=== PATIENT | male | born 1960 | race Hispanic/Latino ===

== ENCOUNTER → 2018-06-19 | Day surgery (SDC) | payer OTHER ==
[~2018-06-19] MED LIST: ACETAMINOPHEN 1000 MG/100 ML IV ONE; BUPIVACAINE 0.25% 30ML SDV INJ ONE; CEFAZOLIN SOD 2 GM/D5W 50ML 50 ML IV ONE; DEXAMETHASONE SOD PHOS INJ 4 MG/ML VIAL ONE; FENTANYL CITRATE/PF 100MCG/2 ML INJ ONE; GLYCOPYRROLATE INJ 1MG/ 5 ML SYR ONE; LIDOCAINE HCL 2% LOCAL INJ 5 ML SDV VIAL INJ ONE; MIDAZOLAM HCL 2 MG/2 ML VIAL ONE; MUPIROCIN 2% OINT 22 GM TUBE ONE; NEOSTIGMINE 5 MG/5ML SYR ONE; NORCO 7.5-3251 EACH PO; ONDANSETRON HCL INJ 2MG/ML 2ML 2 MG/ML VIAL ONE; PROPOFOL IV EMULSION 10 MG/ML 20 ML VIAL ONE; ROCURONIUM BROMIDE 10 MG/ML 5ML VIAL ONE; SEVOFLURANE INHAL SOLN 250 ML PEN BTL ONE; SUCCINYLCHOLINE 200 MG/10 ML SYR ONE
--- OUTSIDE RECORDS SUMMARY | 2018-06-19 05:13 | XMS REPORT | Continuity of Care Document ---
Author Author [facility] Interface Address Unknown Phone Unavailable Problems Problem Status Onset Date Classification Date Reported Comments Source Stomach ache 10/09/2017 Diagnosis 10/09/2017 [facility] Viral gastroenteritis 10/09/2017 Diagnosis 10/09/2017 [facility] Elevated blood-pressure reading without diagnosis of hypertension 10/09/2017 Diagnosis 10/09/2017 [facility] Pain in throat 10/09/2017 Diagnosis 10/09/2017 [facility] Influenza-like symptoms 10/09/2017 Diagnosis 10/09/2017 [facility] Body mass index 40+ - severely obese 10/09/2017 Diagnosis 10/09/2017 [facility] Viral Gastroenteritis 10/09/2017 Problem 10/09/2017 [facility] Pain in Throat 10/09/2017 Problem 10/09/2017 [facility] Benign Prostatic Hyperplasia 10/09/2017 Problem 10/09/2017 [facility] Influenza-like Symptoms 10/09/2017 Problem 10/09/2017 [facility] Stomach Ache 10/09/2017 Problem 10/09/2017 [facility] Elevated Blood-pressure Reading without Diagnosis of Hypertension 10/09/2017 Problem 10/09/2017 [facility] Body Mass Index 40+ - Severely Obese 10/09/2017 Problem 10/09/2017 [facility] Medications Medication Details Route Status Patient Instructions Ordering Provider Order Date Source benzonatate 200 MG Oral Capsule benzonatate 200 mg capsule Take 1 capsule 3 times a day by oral route as needed. Active [facility] 0.5 ML influenza A virus A/[place]/ (H1N1) antigen 0.03 MG/ML / influenza A virus A/ (H3N2) antigen 0.03 MG/ML / influenza B virus B/[place] antigen 0.03 MG/ML / influenza B virus B/ antigen 0.03 MG/ML Prefilled Syringe [Flucelvax Quadrivalent ] Flucelvax Quad 0665-1989 (PF) 60 mcg (15 mcg x 4)/0.5 mL IM syringe IMMUNIZATION GIVEN Active [facility] Fluticasone propionate 0.05 MG/ACTUAT Metered Dose Nasal [place] fluticasone 50 mcg/actuation nasal spray,suspension [place] 2 sprays every day by intranasal route as directed. Active [facility] gabapentin 300 MG Oral Capsule gabapentin 300 mg capsule TAKE ONE (1) CAPSULE(S) BY MOUTH THREE TIMES A DAY. Active [facility] Ondansetron 8 MG Oral Tablet ondansetron HCl 8 mg tablet Take 1 tablet every 8 hours by oral route as needed for 5 days. Active [facility] Tamsulosin hydrochloride 0.4 MG Oral Capsule tamsulosin 0.4 mg capsule TAKE ONE (1) CAPSULE(S) BY MOUTH DAILY DIRECTED. Active [facility] Allergies, Adverse Reactions, Alerts Substance Category Reaction Severity Reaction type Status Date Reported Comments Source Iodine Rash Allergy to substance 04/20/2014 [facility] Immunizations Immunization Date Given Site Status Last Updated Comments Source influenza, unspecified formulation 01/28/2017 completed [facility] Results Order Name Results Value Reference Range Date Interpretation Comments Source RESULT negative 10/09/2017 [facility] SWAB LOCATION Left and Right tonsillar pillars 10/09/2017 [facility] Influenza A negative 10/09/2017 [facility] Influenza B negative 10/09/2017 [facility] Vital Signs Vital Sign Value Date Comments Source Diastolic (mm Hg) 80 10/09/2017 [facility] Height 71 10/09/2017 [facility] Systolic (mm Hg) 120 10/09/2017 [facility] Weight 338 10/09/2017 [facility] Encounters Location Location Details Encounter Type Encounter Number Reason For Visit Attending Provider ADM Date DC Date Status Source [place] - [facility] - [id number] Olvera-C: [address] [place] [address], Ph. [id number] Bijal Arguello 10/09/2017 [facility] Procedures Procedure Code Date Perfomer Comments Source Cholecystectomy [facility] Tonsillectomy [facility]
--- OUTSIDE RECORDS SUMMARY | 2018-06-19 05:13 | XMS REPORT | Encounter Summary ---
Author Organization Unknown Address [address] [place] [address] Phone [phone] Care Team Providers Care Oil Field Worker Name Role Phone Valentino Mendoza 3 [phone] Reason for Visit Medical Complaint Instructions 1. Influenza-like symptoms rapid flu (A+B) benzonatate 200 mg capsule fluticasone 50 mcg/actuation nasal spray,suspension 2. Pain in throat sore throat: care instructions rapid strep group A, throat 3. Viral gastroenteritis ondansetron HCl 8 mg tablet 4. Stomach ache abdominal pain: care instructions 5. Elevated blood-pressure reading without diagnosis of hypertension elevated blood pressure: care instructions 6. Body mass index 40+ - severely obese body mass index information Discussion Note Pt is in NAD; Verbalizes understanding of all instructions with no questions at this time. Plan of Care Patient Instructions Stop dayquil and nyquil. Take tylenol over the counter for stomach pain/headache/fever as per pacakge insert. Take benzonatate for cough as directed. Take fluticasone as needed for congestion. [place] one spray in each nostril twice a day. Take a warm, steamy shower, blow your nose thereafter, and spray in each nostril. Tilt your head up for about 10 seconds and breath through your mouth. Do not sniff or snort the medication in or else the medication will go to your throat and not be absorbed appropriately. Stay hydrated with pedialyte or gatorade, eat a liquid diet for the first four hours. Stay away from fried and spicy foods until symptoms resolve. If you do experience improvement in your symptoms within the next four hours, advance yourself to a carbohydrate-rich diet such as white rice, white bread, and crackers. Within the next four hours thereafter, you can advance to lean meats such as chicken, fish, and turkey. Four hours thereafter if symptoms do improve, then advance to a regular diet. Take ondansetron as directed for nausea. Take medications as prescribed and follow up with a PCP within 2-3 if symptoms worsen as discussed. Recommend monitor BP at home and document, bring BP log to PCP for review. Recommend follow a low sodium diet and exercise 30-45 mins/d 3-4 days a week once symptoms resolve. In case of an emergency call 911 or go to nearest ER. Reminders Provider Appointments None recorded. Lab Rapid Flu (A+B) 10/09/2017 [facility] Rapid Strep Group a, Throat 10/09/2017 [facility] Referral None recorded. Procedures None recorded. Surgeries None recorded. Imaging None recorded. Medications Name Start Date benzonatate 200 mg capsule Take 1 capsule 3 times a day by oral route as needed. Flucelvax Quad 5058-4999 (PF) 60 mcg (15 mcg x 4)/0.5 mL IM syringe IMMUNIZATION GIVEN fluticasone 50 mcg/actuation nasal spray,suspension [place] 2 sprays every day by intranasal route as directed. gabapentin 300 mg capsule TAKE ONE (1) CAPSULE(S) BY MOUTH THREE TIMES A DAY. ondansetron HCl 8 mg tablet Take 1 tablet every 8 hours by oral route as needed for 5 days. tamsulosin 0.4 mg capsule TAKE ONE (1) CAPSULE(S) BY MOUTH DAILY DIRECTED. Medications Administered None recorded. Vitals Height Weight BMI Blood Pressure 5 ft 11 in 338 lbs 47.1 kg/m2 (1) 130/90 mm[Hg] (2) 120/80 mm[Hg] Lab Results Date Name Specimen Result Interpretation Description Value Range Status Address Rapid Strep Group a, Throat Result negative [facility]: [address] [place] [address] Swab Location Left and Right tonsillar pillars [facility]: [address] [place] [address] Rapid Flu (A+B) Influenza a negative [facility]: [address] [place] [address] Influenza B negative [facility]: [address] [place] [address] Allergies Code Code System Name Reaction Severity Status Onset 5933 RxNorm Iodine Rash Active Problems Name Status Onset Date Source Viral Gastroenteritis Active 10/09/2017 Pain in Throat Active 10/09/2017 Benign Prostatic Hyperplasia Active 10/09/2017 Influenza-like Symptoms Active 10/09/2017 Stomach Ache Active 10/09/2017 Elevated Blood-pressure Reading without Diagnosis of Hypertension Active 10/09/2017 Body Mass Index 40+ - Severely Obese Active 10/09/2017 Procedures Date Name Performed by Cholecystectomy Information not available Tonsillectomy Information not available Vaccine List Vaccine Type influenza, unspecified formulation 01/28/2017 Social History Smoking Status Never Smoker Past Encounters 10/09/2017 Influenza-like Symptoms; Pain in Throat; Viral Gastroenteritis; Stomach Ache; Elevated Blood-pressure Reading without Diagnosis of Hypertension; Body Mass Index 40+ - Severely Obese Bijal Arguello, PLANNING AIDE-C: [address] [place] [address], Ph. History of Present Illness Obdavvj-[id number]-Rbr Reported By: Patient HPI: Quality: symptoms worse during the day. Duration: 2-3 days. Severity: subjective temperature. Context: no ill contacts, no tick/insect bites, no recent travel, no new medications. Associated Symptoms: no headache, no muscle aches, no rash, no lethargy, fever/chills, cold symptoms, cough, nasal passage blockage (stuffiness), nasal discharge; sore throat, chest congestion, body aches, nausea, and abdominal pain (resolved). Modifying Factors nothing gives relief Note:
Review of Systems Basic Reported By: Patient Constitutional: Constitutional: fever; body aches and chills Eyes: Eyes: no eye complaints Ueap-Mofd-Rlgue-Throat: Ears: no ear complaints. Nose: nose/sinus problems. Mouth/Throat: no bleeding gums, no mouth complaints, no teeth problems, sore throat Cardiovascular: Cardiovascular: no chest pain, no shortness of breath, no known heart murmur Respiratory: Respiratory: no wheezing, no shortness of breath, cough; chest congestion Gastrointestinal: Gastrointestinal: no vomiting / diarrhea, abdominal pain; nausea Genitourinary: Genitourinary: no urinary complaints, no discharge Musculoskeletal: Musculoskeletal: no muscle aches, no muscle weakness, no arthralgias/joint pain, no back pain Skin: Skin: no abnormal / changing mole, no jaundice, no rashes Neurologic: Neurologic: no loss of consciousness, no weakness, no numbness, no seizures, no dizziness, no headaches Physical Exam Adult Basic, Adult Male Complete Reported By: Patient Constitutional: General Appearance: obese. Level of Distress: NAD. Ambulation: ambulating normally Psychiatric: Mental Status: active and alert. Orientation: to time, to place, to person Eyes: Lids and Conjunctivae: non-injected, no pallor Mjc-Fmec-Abzdo-Throat: Ears: no lesions on external ear, no outer ear tenderness, EACs clear, TMs clear. Hearing: no hearing loss. Nose: no lesions on external nose, nares patent, no septal deviation, nasal passages clear, no sinus tenderness, nasal discharge--rhinorrhea, post nasal drip. Lips, Teeth, and Gums: no mouth or lip ulcers, no bleeding gums, normal dentition. Oropharynx: moist mucous membranes, no erythema, no exudates, tonsils absent Neck: Neck: supple. Lymph Nodes: no cervical LAD Lungs: Respiratory effort: no dyspnea, no tachypnea, no use of accessory muscles, no intercostal retractions. Auscultation: breath sounds normal Cardiovascular: Heart Auscultation: RRR, no murmurs Neurologic: Gait and Station: normal gait, normal station Abdomen: Bowel Sounds: normal. Inspection and Palpation: soft, no tenderness, no guarding, no rebound tenderness, no masses, no CVA tenderness. Hernia: none palpable
[2018-06-19 10:30] VITALS: BP 118/84
--- NOTE | 2018-06-19 15:17 | Operative Report ---
DATE OF PROCEDURE: 06/19/2018 PREOPERATIVE DIAGNOSES: 1. Peroneal tendon tear, left. 2. Dislocated peroneus, left. POSTOPERATIVE DIAGNOSES: 1. Peroneal tendon tear, left. 2. Dislocated peroneus, left. PROCEDURES: 1. Peroneal repair with transposition to the cuboid, left. 2. Fibular groove deepening, left. 3. The application of posterior splint. 4. The use of allograft to repair the tendon. COMPLICATIONS: None. CONDITION: Stable. ANESTHESIA: General anesthetic. HEMOSTASIS: Pneumatic thigh tourniquet. ESTIMATED BLOOD LOSS: Less than 20 mL. MATERIALS: A 4 x 4 graft from BULX with 2-0 suture for transposition of the tendon. PROCEDURE IN DETAIL: sedation, the patient was brought to the operating room and placed on the operating table in supine position. Following IV sedation, anesthesia was obtained with a general anesthetic. At this point, the left foot was scrubbed, prepped and draped in the usual aseptic manner. The foot was positioned into a lateral position. The pneumatic thigh tourniquet was inflated and the leg was lowered to the table. Attention was then directed to the lateral aspect of the left foot, where a curvilinear incision was made overlying the peroneal tendon. The incision was made from the base of the foot down past the watershed area and the fibula, but 4 cm from insertion. The incision was deepened via sharp and blunt dissection down to the level of the peroneal tendon. The extensor retinaculum was then transected, the tendon was then exposed. It was noted the peroneus longus was flat and the sheath was full of mucoid, all this was removed down to clean viable tendon. The peroneus brevis, half of the tendon was torn and there was some detachment from the insertion. All nonviable tissue was removed with a 15 blade down to clean viable tissue. The tendon was then tubulated and then graft was used to augment the tendon. At this point, the detached peroneus brevis was transposed into the cuboid. There was noted to be adequate correction clinically. A SonicAnchor was used under the use of intraoperative fluoroscopy to confirm adequate placement into the cuboid. The area was then flushed with copious amounts of normal sterile saline solution. Attention was then directed to the fibular groove, where utilizing a combination of a hand rasp and a rotary kortney, the fibular groove was deepened in order to prevent the tendons from dislocating on ambulation. The shallow groove was then deepened. The area was then flushed with copious amounts of normal sterile saline solution. At this point, all layers were closed, closing the deepest layer with 3-0 Vicryl and 4-0 Vicryl and 4-0 nylon. Tourniquet had been deflated prior to closing. There was noted to be adequate blood flow to all extremities. An injection of 20 mL of 0.5% of Marcaine plain was given. All areas were then dressed with sterile compressive dressing consisting of Adaptic, Coban, 4 x 4s, Kerlix. Webril posterior splint was applied and it was secured utilizing an Brent bandage. The tourniquet had been deflated prior to closure and there was noted to be hyperemic response to all the digits. The patient tolerated the procedure and anesthesia well without complications, was transferred to recovery room with vital signs stable and vascular status intact to both feet. The patient will be discharged home when he meets the criteria. He was given instructions to be strict nonweightbearing, to elevate the foot while at rest, follow up with me in the office and to call the office if any questions, concerns, or new problems arise. KOREY Danielle/ROSANNE /[id number]
== END | disposition home or self-care (01) ==
LOC: OR 05:10
PROVIDERS: ATTEND Podiatrist Foot & Ankle Surgery
DX: S86.312A Strain of muscle(s) and tendon(s) of peroneal muscle group at lower leg level, left leg, initial encounter (principal); E66.9 Obesity, unspecified; I45.10 Unspecified right bundle-branch block; Z91.041 Radiographic dye allergy status; X58.XXXA Exposure to other specified factors, initial encounter; Z01.810 Encounter for preprocedural cardiovascular examination; Z90.5 Acquired absence of kidney; Z85.528 Personal history of other malignant neoplasm of kidney
CPT/HCPCS: 27676; 76000; 93005; J0131; J0690; J1100; J2001; J2250; J2405; J2704; J3490; Q4100

== ENCOUNTER → 2018-09-26 | Day surgery (SDC) | payer OTHER ==
[2018-09-21 11:51] LABS: BASOPHILS # (AUTO) 0.1 (0.0-0.1); BASOPHILS % 0.8 % (0.0-1.0); EOSINOPHILS # (AUTO) 0.2 (0.0-0.4); EOSINOPHILS % 2.6 % (0.0-6.0); HEMATOCRIT 48.3 % (38.2-49.6); HEMOGLOBIN 16.8 g/dL (14.0-18.0); LYMPHOCYTES # (AUTO) 1.2 (1.0-3.2); LYMPHOCYTES % 19.6 % (18.0-39.1); MEAN CORPUSCULAR HEMOGLOBIN 30.8 pg (28-32); MEAN CORPUSCULAR HGB CONC 34.8 g/dL (31-35); MEAN CORPUSCULAR VOLUME 88.6 fL (81-99); MONOCYTES # (AUTO) 0.6 (0.2-0.8); MONOCYTES % 10.2 % (4.4-11.3); NEUTROPHILS # (AUTO) 4.1 (2.1-6.9); NEUTROPHILS % 66.3 % (38.7-80.0); PLATELET COUNT 215 x10e3/uL (140-360); RED BLOOD COUNT 5.45 x10e6/uL (4.3-5.7); RED CELL DISTRIBUTION WIDTH 13.1 % (11.7-14.4)
[2018-09-21 12:03] LABS: ANION GAP 10.9 mmol/L (8-16); BLOOD UREA NITROGEN 20 mg/dL (7-26); BUN/CREATININE RATIO 17 (6-25); CALCIUM 9.3 mg/dL (8.4-10.2); CARBON DIOXIDE 23 mmol/L (22-29); CHLORIDE 108 mmol/L (98-107); CREATININE, SERUM 1.18 mg/dL (0.72-1.25); EST GLOMERULAR FILTRATION RATE > 60 ML/MIN (60-); GLUCOSE 96 mg/dL (74-118); POTASSIUM 3.9 mmol/L (3.5-5.1); SODIUM 138 mmol/L (136-145)
[~2018-09-26] MED LIST changes: +BACITRACIN 50,000 UNIT VIAL ONE; -BUPIVACAINE 0.25% 30ML SDV INJ ONE; +BUPIVACAINE 0.5%/EPI 30 ML SDV INJ ONE; +BUPIVACAINE HCL 0.5% INJ 30 ML VIAL INJ ONE; +CEFAZOLIN SOD 1 GM/NS 50ML 50 ML IV ONE; -GLYCOPYRROLATE INJ 1MG/ 5 ML SYR ONE; -MUPIROCIN 2% OINT 22 GM TUBE ONE; -NEOSTIGMINE 5 MG/5ML SYR ONE
--- OUTSIDE RECORDS SUMMARY | 2018-09-26 05:56 | XMS REPORT ---
Author Author [facility] Address Unknown Phone Unavailable Care Team Providers Care Inventory Control Supervisor Name Role Phone Unavailable Unavailable Payers Payer Name Policy Type Policy Number Effective Date Expiration Date Problems This patient has no known problems. Allergies, Adverse Reactions, Alerts Allergy Name Allergy Type Status Severity Reaction(s) Onset Date Inactive Date Treating Clinician Comments iodine DA Active [facility] 2016-04-15 00:00:00 Medications This patient has no known medications.
[2018-09-26 10:30] VITALS: BP 112/74
--- NOTE | 2018-09-26 17:05 | Operative Report ---
DATE OF PROCEDURE: 09/26/2018 SURGEON: Carter Mccormack MD PREOPERATIVE DIAGNOSIS: Recurrent incisional hernia. POSTOPERATIVE DIAGNOSIS: Recurrent incisional hernia. PROCEDURE: Repair of recurrent incisional hernia with mesh. TUBE COVERER: None. ANESTHESIA: General endotracheal. INDICATIONS AND FINDINGS: The patient is a 57-year-old male with complaints of bulge left side of the abdomen adjacent to the umbilicus. He has had previous hernia repair several times. At surgery, there was a hernia at the edge of previous repair where the mesh was, containing some small bowel. The fascial defect was approximately 3 x 4 cm. TECHNIQUE: After adequate general endotracheal anesthesia with the patient in supine position, the abdomen was prepped and draped in sterile fashion with ChloraPrep solution. Transverse incision was made over the area of the hernia, carried down through subcutaneous tissue. The hernia mass was dissected free from the surrounding tissues down to the fascia. Freed from the fascia hernia defect also freed from the umbilicus. The hernia sac was opened. The redundant sac was excised. The small bowel within the hernia was reduced in the peritoneal cavity with the fascial defect completely delineated. A separate mesh was soaked in antibiotic solution and fashioned to appropriate size. It was sutured to the undersurface of the fascia in the intraperitoneal position with a running horizontal mattress suture of #0 prolene sutures taken approximately 2.5 cm from the edge of the defect. Once the mesh was in place within the edge of the fascia closed transversely over the mesh with a running suture of #0 Prolene. When the mesh was being sutured in place, care was taken that the small bowel was not entrapped. The wound was infiltrated with 0.5% Marcaine. It was irrigated with antibiotic solution, inspected for hemostasis, which was seem to be adequate. A 19-Welsh Shalom drain was placed into the subcutaneous tissue through a separate stab wound incision. The subcutaneous tissue was closed using running suture of 3-0 Vicryl and skin was closed with haleigh. Sterile dressing was applied. The patient tolerated the procedure well. Estimated blood loss was 25 mL. There were no complications. All counts were correct and the patient was taken to the recovery room in satisfactory condition. Carter Mccormack MD DWG/NAGIL /[id number]
== END | disposition home or self-care (01) ==
LOC: OR 05:54
PROVIDERS: ATTEND Surgery
DX: K43.2 Incisional hernia without obstruction or gangrene (principal); Z01.810 Encounter for preprocedural cardiovascular examination; Z01.812 Encounter for preprocedural laboratory examination
CPT/HCPCS: 36415; 49565; 49568; 80048; 85025; 88302; 93005; C1781; J0131; J0690 ×2; J1100; J2001; J2250; J2405; J2704

== ENCOUNTER → 2024-01-18 | Day surgery (SDC) | payer BC ==
[~2024-01-18] MED LIST changes: -ACETAMINOPHEN 1000 MG/100 ML IV ONE; -BACITRACIN 50,000 UNIT VIAL ONE; -BUPIVACAINE 0.5%/EPI 30 ML SDV INJ ONE; -BUPIVACAINE HCL 0.5% INJ 30 ML VIAL INJ ONE; -CEFAZOLIN SOD 1 GM/NS 50ML 50 ML IV ONE; -CEFAZOLIN SOD 2 GM/D5W 50ML 50 ML IV ONE; -DEXAMETHASONE SOD PHOS INJ 4 MG/ML VIAL ONE; +DEXMEDETOMIDINE HCL 200 MCG/2 ML VIAL ONE; -FENTANYL CITRATE/PF 100MCG/2 ML INJ ONE; +FLOMAX0.4 MG PO; +LACTATED RINGER'S 1,000 ML ONE; -MIDAZOLAM HCL 2 MG/2 ML VIAL ONE; -ONDANSETRON HCL INJ 2MG/ML 2ML 2 MG/ML VIAL ONE; -PROPOFOL IV EMULSION 10 MG/ML 20 ML VIAL ONE; +PROPOFOL IV EMULSION 10 MG/ML 50 ML VIAL IV ONE; -ROCURONIUM BROMIDE 10 MG/ML 5ML VIAL ONE; -SEVOFLURANE INHAL SOLN 250 ML PEN BTL ONE; -SUCCINYLCHOLINE 200 MG/10 ML SYR ONE
[2024-01-18 07:55] VITALS: BP 151/89; PULSE 74; RESP 17; O2SAT 97
== END | disposition home or self-care (01) ==
LOC: OR 05:56
PROVIDERS: ATTEND Internal Medicine Gastroenterology
DX: Z12.11 Encounter for screening for malignant neoplasm of colon (principal); D12.3 Benign neoplasm of transverse colon; K64.8 Other hemorrhoids; K21.9 Gastro-esophageal reflux disease without esophagitis; Z78.9 Other specified health status; E66.01 Morbid (severe) obesity due to excess calories; Z91.041 Radiographic dye allergy status; Z91.013 Allergy to seafood; Z01.810 Encounter for preprocedural cardiovascular examination; Z68.41 Body mass index [BMI] 40.0-44.9, adult; Z85.528 Personal history of other malignant neoplasm of kidney; Z90.5 Acquired absence of kidney
CPT/HCPCS: 45385; 88305; 93005; J2001; J2704; J7121; 45378